=== PATIENT | female | born 1990 | race Caucasian/White ===

== ENCOUNTER 2017-10-20 07:23 | Emergency (ER) | payer MEDICAID ==
[~2017-10-20] VITALS: Ht 157.5 cm; Wt 87.1 kg
[2017-10-20 07:30] VITALS: Ht 157.5 cm; Wt 87.1 kg
[2017-10-20 09:04] VITALS: BP 117/64
== END 2017-10-20 09:04 | disposition home or self-care (01) ==
LOC: ED 07:23
DX: O26.892 Other specified pregnancy related conditions, second trimester (principal); R19.7 Diarrhea, unspecified

== ENCOUNTER 2018-05-22 18:51 | Emergency (ER) | payer MEDICAID ==
[2018-05-22 19:05] VITALS: Ht 157.5 cm
[2018-05-22 21:25] VITALS: BP 116/75
== END 2018-05-22 21:25 | disposition home or self-care (01) ==
LOC: ED 18:51
DX: J06.9 Acute upper respiratory infection, unspecified (principal); B34.9 Viral infection, unspecified; H66.93 Otitis media, unspecified, bilateral

== ENCOUNTER 2019-05-07 16:42 | Emergency (ER) | payer MEDICAID ==
[~2019-05-07] VITALS: Ht 157.5 cm; Wt 73.9 kg
[2019-05-07 16:51] VITALS: BP 131/88; Ht 157.5 cm; Wt 73.9 kg
== END 2019-05-07 17:59 | disposition left against medical advice (07) ==
LOC: ED 16:42
DX: Z53.21 Procedure and treatment not carried out due to patient leaving prior to being seen by health care provider (principal)